=== PATIENT | female | born 1960 | race Caucasian/White ===

== ENCOUNTER 2016-09-23 10:05 | Emergency (ER) ==
[2016-09-23 10:13] VITALS: BP 139/92; TEMP 100.5; BMI 35.7
--- NOTE | 2016-09-23 10:44 | ED.PDOC ---
[id number]: l shoulder pain after a fall Time Seen by Physician: 10:10 Mode of Arrival: Walk-In Information Source: Patient Exam Limitations: No limitations Primary Care Provider: AMMON LOPEZ Nursing and Triage Documentation Reviewed and Agree: Yes (no other injury ) Review of Systems - Review Of Systems Constitutional: Reports: No symptoms Eyes: Reports: No symptoms Ears, Nose, Mouth, Throat: Reports: No symptoms Respiratory: Reports: No symptoms Cardiac: Reports: No symptoms GI: Reports: No symptoms : Reports: No symptoms Musculoskeletal: Reports: Joint pain (left shoulder ) Skin: Reports: No symptoms Neurological: Reports: No symptoms Endocrine: Reports: No symptoms Hematologic/Lymphatic: Reports: No symptoms All Other Systems: Reviewed and Negative Past Medical History - Past Medical History Previously Healthy: Yes Endocrine: Reports: None Cardiovascular: Reports: None Respiratory: Reports: None Hematological: Reports: Other Gastrointestinal: Reports: None Genitourinary: Reports: None Neuro/Psych: Reports: None Musculoskeletal: Reports: Back Pain Cancer: Reports: None Last Menstrual Period: n/a - Surgical History General Surgical History: Reports: Hysterectomy, Appendectomy - Family History Family History: Reports: Heart - Social History Smoking Status: Current some day smoker Hx Substance Use: No Alcohol Screening: None Physical Exam - Physical Exam Appearance: Well-appearing, No pain distress, Well-nourished Eyes: GLYNN, EOMI, Conjunctiva clear ENT: Ears normal, Nose normal, Oropharynx normal Respiratory: Airway patent, Breath sounds clear, Breath sounds equal, Respirations nonlabored Cardiovascular: RRR, Pulses normal, No rub, No murmur GI/: Soft, Nontender, No masses, Bowel sounds normal, No Organomegaly Musculoskeletal: Limited ROM (left shoulder ) Skin: Warm, Dry, Normal color Neurological: Sensation intact, Motor intact, Reflexes intact, Cranial nerves intact, Alert, Oriented Psychiatric: Affect appropriate, Mood appropriate Interpretation - Radiology Interpretation Radiology Interpretation By: Radiologist Critical Care Note - Critical Care Note Total Time (mins): 0 Course - Course Orders, Labs, Meds: Orders Category Date Time Status Shoulder immobilizer [ED SPLINT APPLICATION] .ONCE EMERGENCY 09/23/16 10:45 Active SHOULDER, LEFT MIN 2V Stat RADS 09/23/16 10:15 Completed Vital Signs: Temp Pulse Resp BP Pulse Ox 09/23/16 10:06 100.5 F H 98 H 16 139/92 H 98 Departure - Departure Time of Disposition: 11:00 Disposition: HOME SELF-CARE Discharge Problem: Shoulder pain Rotator cuff (capsule) sprain Qualifiers: Laterality: left Instructions: Arthralgia (ED), Shoulder Pain (ED) Condition: Good Pt referred to PMD for follow-up: No Additional Instructions: Please call your Family Physician as soon as possible to schedule a follow-up appointment.MUST GET AN MRI THROUGH YOUR DOCTOR JACOB Allergies/Adverse Reactions: Allergies No Known Allergies Allergy (Verified 09/23/16 10:09) Home Medications: Ambulatory Orders Fenofibrate 160 mg PO DAILY 04/20/14 Oxycodone HCl/Acetaminophen [Percocet 7.5-325 mg Tablet] 1 tab PO QID PRN Rosuvastatin Calcium [Crestor] 40 mg PO DAILY 04/20/14 Esomeprazole Magnesium [Nexium] 40 mg PO DAILY 12/06/15 Disposition Discussed With: Patient, Family
--- NOTE | 2016-09-23 10:58 | DI ---
EXAM: Left shoulder three view HISTORY: Pain COMPARISON: None FINDINGS: The bones are normal. The glenohumeral joint and acromioclavicular joint are normal. No f ocal soft tissue abnormality. Visualized portion of the chest is normal. IMPERSSION: Normal examination.
== END 2016-09-23 11:52 | disposition home or self-care (01) ==
LOC: ED 10:05
DX: S43.422A Sprain of left rotator cuff capsule, initial encounter (principal); M25.512 Pain in left shoulder; F17.210 Nicotine dependence, cigarettes, uncomplicated
CPT/HCPCS: 99283

== ENCOUNTER 2016-09-28 08:48 | Outpatient (CLI) | payer OTHER ==
--- NOTE | 2016-09-28 13:24 | MRI ---
EXAM: MRI of the left shoulder without contrast COMPARISON: Left shoulder radiographs 09/23/2016. HISTORY: Left shoulder pain. The shoulder popped after a fall 5 days ago. TECHNIQUE: Multiplanar noncontrast MR images of the left shoulder were acquired using a 1.2 Liset m agnet. Several sequences were repeated due to patient motion artifact. The repeated sequences remai n mildly limited by motion artifact. FINDINGS: There is rotator cuff tendinosis which is moderately severe involving the supraspinatus a nd subscapularis with mild infraspinatus tendinosis. Mild thinning bursal surface irregularity of t he supraspinatus at/lateral to the acromion measuring 1.3 cm extent related bursal surface fraying/s hallow partial-thickness bursal surface tear. There is a linear intrasubstance fissuring/partial th ickness tearing of the supraspinatus at that level as well. Tiny partial-thickness articular surface /rim rent tear of the insertional fibers of the infraspinatus measuring 2 mm medial lateral dimensio n. No full-thickness rotator cuff tear or tendon retraction. Trace fluid in the subacromial/subdelt oid bursa anteriorly. There is limited assessment of the glenoid labrum on this non arthrographic study. Suspected anatom ic variation (sublabral foramen). No paralabral cyst. Glenohumeral joint space is preserved withou t an acute fracture dislocation. The long head of the biceps is located within the bicipital groove and is intact. Capsular hypertrophy and small marginal osteophytes at the acromioclavicular joint. There is a type 1 acromion. No evidence of an os acromiale or abnormal widening of the acromioclavicular joint spa ce. No soft tissue mass identified. IMPRESSION: 1. Mild to moderate rotator cuff tendinosis. Bursal surface fraying/partial thickness tearing of t he supraspinatus as well as tiny partial-thickness/rim rent tear of the insertional fibers of the in fraspinatus as described above without a full-thickness tear or tendon retraction. 2. Minimal fluid in the subacromial/subdeltoid bursa. 3. Mild hypertrophic degenerative changes of the acromioclavicular joint. 4. Motion limited study.
== END 2016-09-28 08:49 | disposition home or self-care (01) ==
LOC: RAD 08:48
PROVIDERS: ATTEND Nurse Practitioner Family
DX: S49.92XA Unspecified injury of left shoulder and upper arm, initial encounter (principal)

== ENCOUNTER 2017-11-04 11:50 | Outpatient (CLI) | END 2017-11-04 11:51 | disposition short-term general hospital (02) | LOC: AMBL 11:50 | PROVIDERS: ATTEND Internal Medicine Geriatric Medicine | DX: M25.551 Pain in right hip (principal); W01.0XXA Fall on same level from slipping, tripping and stumbling without subsequent striking against object, initial encounter ==